=== PATIENT | male | born 1980 | race Caucasian/White ===

== ENCOUNTER 2022-05-25 09:01 | Observation (INO) ==
[2022-05-25] MEDS ORDERED: Acetaminophen 325 MG TABLET PO PRN (11:08)
[2022-05-25] MEDS ORDERED: Naloxone 0.4 MG/ML INJ IVP PRN (11:08)
[2022-05-25] MEDS: 0.9 % Sodium Chloride 1,000 ML IVC SCH ×2 (11:25→19:42)
[2022-05-25] MEDS: Ondansetron 4 MG/2 ML VIAL IVP PRN ×2 (11:25→19:39)
[2022-05-25 14:50] LABS: Bilirubin,Urine Negative (Negative); Blood,Urine Trace (Negative); Clarity,Urine Clear (Clear); Color,Urine Light-Yellow (Yellow); Glucose,Urine (UA) Normal (Normal); Ketones,Urine 20 mg/dL (Negative); Leukocyte Esterase,Urine Negative (Negative); Nitrite,Urine Negative (Negative); Protein,Urine Trace mg/dL (Neg-Trace); RBC,Urine 0-3 per hpf (0-3); Specific Gravity,Urine 1.016 (1.010-1.025); Urobilinogen,Urine Normal (Normal); WBC,Urine 0-3 per hpf (0-3)
[2022-05-25] MEDS: Morphine Sulfate 2 MG/ML SYRINGE IVP PRN ×2 (15:11→21:09)
[2022-05-25] MEDS: *HR* HYDROcodone/Acet 5/325 mg TABLET PO PRN (18:14)
[2022-05-26] MEDS: *HR* HYDROcodone/Acet 5/325 mg TABLET PO PRN (00:15)
[2022-05-26] MEDS: Morphine Sulfate 2 MG/ML SYRINGE IVP PRN (04:02)
[2022-05-26] MEDS: 0.9 % Sodium Chloride 1,000 ML IVC SCH ×3 (04:03→22:03)
[2022-05-26 06:34] LABS: Basophils % 0.2 %; Eosinophils % 0.4 %; Hematocrit 33.8 % (37.5-50.1); Hemoglobin 11.8 g/dL (12.9-16.9); Immature Granulocytes % 0.4 % (0-4); Lymphocytes # 1.2 K/mcL (0.6-4.6); Lymphocytes % 12.6 %; Mean Corpuscular HGB Conc 34.9 g/dL (31.6-35.5); Mean Corpuscular Hemoglobin 31.1 pg (28.0-33.3); Mean Corpuscular Volume 89.2 fL (83.0-100.0); Mean Platelet Volume 10.6 fL (9.4-12.4); Monocytes % 10.4 %; Neutrophils # 7.2 K/mcL (1.6-8.9); Platelet Count 217 K/mcL (140-400); Red Blood Count 3.79 M/mcL (4.19-5.50); Red Cell Distribution Width 11.5 % (11.5-14.5); White Blood Count 9.5 K/mcL (4.3-11.1)
[2022-05-26 06:52] LABS: Calcium 8.6 mg/dL (8.6-10.3); Potassium 3.7 mEq/L (3.5-5.1)
[2022-05-26] MEDS ORDERED: Ondansetron 4 MG/2 ML VIAL ONE (07:34)
[2022-05-26] MEDS ORDERED: *HR* Propofol 200 MG/20 ML VIAL IVP ONE (07:34)
[2022-05-26] MEDS ORDERED: *HR* FentaNYL (PF) 100 MCG/2 ML VIAL ONE (07:34)
[2022-05-26] MEDS ORDERED: *HR* Midazolam HCl 2 MG/2 ML VIAL ONE (07:34)
[2022-05-26] MEDS ORDERED: Lidocaine -MPF 2% 2 ML VIAL ONE (07:34)
[2022-05-26] MEDS ORDERED: Naloxone 0.4 MG/ML INJ IVP PRN ×2 (07:55→12:03)
[2022-05-26] MEDS ORDERED: Ondansetron 4 MG/2 ML VIAL IVP PRN ×2 (07:55→12:03)
[2022-05-26] MEDS ORDERED: Albuterol 2.5 MG/3 ML NEBULIZER IH PRN (07:55)
[2022-05-26] MEDS ORDERED: cefTRIAXone 2,000 MG in 0.9 % Sodium Chloride 20 ML IVP SCH (09:00)
[2022-05-26] MEDS ORDERED: Topiramate 100 MG TABLET PO SCH (09:00)
[2022-05-26] MEDS ORDERED: *HR* Labetalol 20 MG/4 ML SYRINGE IVP ONE ×3 (09:52→11:12)
[2022-05-26] MEDS: *HR* HYDROmorphone PF 0.5 MG/0.5 ML SYRINGE IVP PRN ×2 (10:37→10:52)
[2022-05-26] MEDS ORDERED: 0.9 % Sodium Chloride 1,000 ML IVC SCH (12:00)
[2022-05-26] MEDS ORDERED: Morphine Sulfate 2 MG/ML SYRINGE IVP PRN (12:03)
[2022-05-26] MEDS ORDERED: Acetaminophen 325 MG TABLET PO PRN (12:03)
[2022-05-26] MEDS ORDERED: *HR* HYDROcodone/Acet 5/325 mg TABLET PO PRN (12:03)
[2022-05-26] MEDS ORDERED: *HR* Metoprolol 5 MG/5 ML VIAL IVP ONE (13:40)
[2022-05-26] MEDS: amLODIPine 5 MG TABLET PO SCH (14:10)
[2022-05-26] MEDS ORDERED: *HR* Heparin 5,000 UNIT/ML VIAL SQ SCH (18:00)
[2022-05-26] MEDS: *HR* Heparin 5,000 UNIT/ML VIAL SQ SCH (18:20)
[2022-05-26] MEDS ORDERED: Prochlorperazine 10 MG/2 ML VIAL IVP ONE (19:13)
[2022-05-26] MEDS ORDERED: polyethylene glycoL 3350 17 GM POWD.PACK PO PRN (20:00)
[2022-05-27 03:13] LABS: Hematocrit 35.3 % (37.5-50.1); Hemoglobin 12.6 g/dL (12.9-16.9); Immature Granulocytes % 0.4 % (0-4); Lymphocytes # 0.9 K/mcL (0.6-4.6); Lymphocytes % 10.1 %; Mean Corpuscular HGB Conc 35.7 g/dL (31.6-35.5); Mean Corpuscular Hemoglobin 31.4 pg (28.0-33.3); Mean Platelet Volume 9.9 fL (9.4-12.4); Monocytes # 0.6 K/mcL (0.0-1.3); Neutrophils # 7.6 K/mcL (1.6-8.9); Platelet Count 237 K/mcL (140-400); Red Blood Count 4.01 M/mcL (4.19-5.50); Red Cell Distribution Width 11.5 % (11.5-14.5); Segmented Neutrophils % 82.5 %; White Blood Count 9.2 K/mcL (4.3-11.1)
[2022-05-27 03:40] LABS: Calcium 9.5 mg/dL (8.6-10.3); Magnesium 1.9 mg/dL (1.6-2.6); Phosphorous 3.7 mg/dL (2.7-4.5); Potassium 3.7 mEq/L (3.5-5.1)
[2022-05-27] MEDS: *HR* Heparin 5,000 UNIT/ML VIAL SQ SCH (05:59)
[2022-05-27 06:41] VITALS: TEMP 98
[2022-05-27] MEDS: amLODIPine 5 MG TABLET PO SCH (08:57)
[2022-05-27] MEDS ORDERED: cefTRIAXone 2,000 MG in 0.9 % Sodium Chloride 20 ML IVP SCH (09:00)
[2022-05-27] MEDS ORDERED: lisinopriL 20 MG TABLET PO SCH (09:00)
[2022-05-27] MEDS ORDERED: Topiramate 100 MG TABLET PO SCH (09:00)
[2022-05-27 10:07] VITALS: BP 151/88; PULSE 89; O2SAT 99
== END 2022-05-27 10:41 | disposition home or self-care (01) ==
LOC: 3BNU → SUATTDRO 10:41
PROVIDERS: ADMIT Internal Medicine; ATTEND Internal Medicine